=== PATIENT | female | born 1990 | race Caucasian/White ===

== ENCOUNTER 2021-05-19 23:06 | Inpatient (IN) ==
[2021-05-19] MEDS ORDERED: Haloperidol Lactate 5 MG/ML VIAL IM ONE (23:48)
[2021-05-20 01:41] LABS: Hematocrit 31.3 % (35.3-44.9); Hemoglobin 9.7 g/dL (11.5-15.4); Immature Granulocytes % 0.2 % (0-4); Lymphocytes # 1.6 K/mcL (0.6-4.6); Lymphocytes % 29.7 %; Mean Corpuscular Hemoglobin 23.4 pg (28.0-33.3); Mean Corpuscular Volume 75.4 fL (83.0-100.0); Mean Platelet Volume 9.4 fL (9.4-12.4); Monocytes # 0.5 K/mcL (0.0-1.3); Monocytes % 9.7 %; Neutrophils # 3.2 K/mcL (1.6-8.9); Platelet Count 226 K/mcL (140-400); Red Blood Count 4.15 M/mcL (3.82-4.97); Red Cell Distribution Width 17.4 % (11.5-14.5); Segmented Neutrophils % 60.4 %; White Blood Count 5.3 K/mcL (4.3-11.1)
[2021-05-20 02:06] LABS: Acetaminophen < 10 mcg/mL (10-20); Alanine Aminotransferase 11 Units/L (7-52); Albumin/Globulin Ratio 1.2 (1.1-2.2); Alkaline Phosphatase 80 Units/L (34-104); Aspartate Amino Transferase 23 Units/L (13-39); BUN/Creatinine Ratio 12 (6-26); Bilirubin,Indirect 0.4 mg/dL (0.0-1.0); Bilirubin,Total 0.4 mg/dL (0.3-1.0); Blood Urea Nitrogen 8 mg/dL (6-20); Calcium 9.1 mg/dL (8.6-10.3); Carbon Dioxide 25 mEq/L (23-29); Chloride 109 mEq/L (98-107); Ethanol < 10 mg/dL (Less than 10); Globulin 3.3 g/dL (2.4-3.5); Glucose 110 mg/dL (70-105); Osmolality,Calculated 289 (280-300); Potassium 3.1 mEq/L (3.5-5.1); Salicylate < 2.5 mg/dL (15.0-30.0); Sodium 140 mEq/L (136-145); Total Protein 7.3 g/dL (6.4-8.9); eGFR For African Americans > 60 (> 60); eGFR For Non-African Americans > 60 (> 60)
[2021-05-20 02:42] LABS: Adenovirus Not Detected (Not Detect); Bordetella Pertussis Not Detected (Not Detect); Chlamydophila pneumoniae Not Detected (Not Detect); Coronavirus 229E Not Detected (Not Detect); Coronavirus HKU1 Not Detected (Not Detect); Coronavirus NL63 Not Detected (Not Detect); Coronavirus OC43 Not Detected (Not Detect); Human Metapneumovirus Not Detected (Not Detect); Human Rhinovirus/Enterovirus Not Detected (Not Detect); Influenza A Subtype 2009 H1 Not Detected (Not Detect); Influenza B Not Detected (Not Detect); Mycoplasma pneumoniae Not Detected (Not Detect); Parainfluenza Virus 1 Not Detected (Not Detect); Parainfluenza Virus 2 Not Detected (Not Detect); Parainfluenza Virus 3 Not Detected (Not Detect); Parainfluenza Virus 4 Not Detected (Not Detect); Respiratory Syncytial Virus Not Detected (Not Detect); SARS-CoV-2 Not Detected (Not Detect)
[2021-05-20 03:24] LABS: Bilirubin,Urine Negative (Negative); Blood,Urine Negative (Negative); Clarity,Urine Turbid (Clear); Color,Urine Yellow (Yellow); Glucose,Urine (UA) Normal (Normal); Ketones,Urine Negative (Negative); Leukocyte Esterase,Urine Moderate (Negative); Mucus,Urine Many per lpf (None-Few); Nitrite,Urine Negative (Negative); Protein,Urine 50 mg/dL (Neg-Trace); Specific Gravity,Urine > 1.030 (1.010-1.025); Squamous Epithelial Cell,Urine Many per hpf (None-Few)
[2021-05-20 03:36] LABS: Amphetamine Screen,Urine Positive ng/mL (Cutoff=1000); Barbiturate Screen,Urine Negative ng/mL (Cutoff=200); Benzodiazepines Screen,Urine Negative ng/mL (Cutoff=200); Cannabinoid Screen,Urine Negative ng/mL (Cutoff = 50); Cocaine Screen,Urine Negative ng/mL (Cutoff= 300); Opiate Screen,Urine Negative ng/mL (Cutoff=300); Phencyclidine Screen,Urine Negative ng/mL (Cutoff=25)
[2021-05-20] MEDS ORDERED: Potassium Chloride Elixir 20 MEQ/15 ML UDC PO ONE (03:46)
[2021-05-20] MEDS ORDERED: cephALEXin 500 MG CAPSULE PO ONE (03:47)
[2021-05-20] MEDS ORDERED: Haloperidol Lactate 5 MG/ML VIAL IM PRN (04:56)
[2021-05-20] MEDS ORDERED: *HR* LORazepam 1 MG TABLET PO PRN (04:56)
[2021-05-20] MEDS ORDERED: haloperidoL 5 MG TABLET PO PRN (04:56)
[2021-05-20] MEDS ORDERED: *HR* LORazepam 2 MG/ML VIAL IM PRN (04:56)
[2021-05-20] MEDS ORDERED: hydrOXYzine pamoate 25 MG CAPSULE PO PRN (04:56)
[2021-05-20] MEDS ORDERED: QUEtiapine Fumarate 25 MG TABLET PO PRN (04:56)
[2021-05-20] MEDS: cephALEXin 500 MG CAPSULE PO SCH ×2 (09:51→20:36)
[2021-05-20] MEDS ORDERED: *HR* Buprenorphine HCl 8 MG TAB.SUBL SL SCH ×2 (11:00→17:00)
[2021-05-20] MEDS ORDERED: Ibuprofen 400 MG TABLET PO PRN (11:02)
[2021-05-20] MEDS ORDERED: Mag Hydrox/Al Hydrox/Simeth 30 ML UDC PO PRN (11:02)
[2021-05-20] MEDS ORDERED: MOM Conc 10 ML UD.LIQ PO PRN (11:02)
[2021-05-20] MEDS: Venlafaxine XR (24 HR) 75 MG CAP.ER.24H PO SCH (13:35)
[2021-05-20] MEDS: Gabapentin 400 MG CAPSULE PO SCH ×3 (13:35→20:36)
[2021-05-20] MEDS: Venlafaxine XR (24 HR) 150 MG CAP.ER.24H PO SCH (13:35)
[2021-05-20] MEDS: Nicotine 14 MG PATCH.TD24 TD SCH (13:38)
[2021-05-20] MEDS: NALOXONE HCL SL SCH (14:43)
[2021-05-20] MEDS: BUPRENORPHINE HCL SL SCH (14:43)
[2021-05-20] MEDS ORDERED: NON-FORMULARY MEDICATION 1 EACH EACH (Buprenorphine Hcl/Naloxone Hcl [Suboxone 8 Mg-2 Mg S SL SCH (21:00)
[2021-05-20] MEDS ORDERED: QUEtiapine Fumarate 100 MG TABLET PO SCH (21:00)
[2021-05-21 09:13] VITALS: BP 114/70; PULSE 97; TEMP 98; O2SAT 97
[2021-05-21] MEDS: Nicotine 14 MG PATCH.TD24 TD SCH (09:24)
[2021-05-21] MEDS: cephALEXin 500 MG CAPSULE PO SCH (09:26)
[2021-05-21] MEDS: Venlafaxine XR (24 HR) 150 MG CAP.ER.24H PO SCH (09:26)
[2021-05-21] MEDS: Gabapentin 400 MG CAPSULE PO SCH (09:26)
[2021-05-21] MEDS: Venlafaxine XR (24 HR) 75 MG CAP.ER.24H PO SCH (09:26)
[2021-05-21] MEDS ORDERED: *HR* Buprenorphine HCl 8 MG TAB.SUBL SL SCH (09:45)
[2021-05-21] MEDS: NALOXONE HCL SL SCH (09:58)
[2021-05-21] MEDS: BUPRENORPHINE HCL SL SCH (09:58)
== END 2021-05-21 13:25 | disposition home or self-care (01) | DRG 753 ==
LOC: EMEROOARM 23:06 → 1ANU 05-20 05:08
PROVIDERS: ADMIT Psychiatry & Neurology Psychiatry; ATTEND Psychiatry & Neurology Psychiatry

== ENCOUNTER 2021-06-05 15:33 | Observation (INO) ==
[2021-06-05] MEDS ORDERED: *HR* LORazepam 2 MG/ML VIAL IM ONE (16:16)
[2021-06-05] MEDS ORDERED: Haloperidol Lactate 5 MG/ML VIAL IM ONE (16:16)
[2021-06-05 17:18] LABS: Hematocrit 31.5 % (35.3-44.9); Hemoglobin 9.9 g/dL (11.5-15.4); Immature Granulocytes % 0.2 % (0-4); Lymphocytes % 21.2 %; Mean Corpuscular HGB Conc 31.4 g/dL (31.6-35.5); Mean Corpuscular Hemoglobin 23.5 pg (28.0-33.3); Mean Corpuscular Volume 74.6 fL (83.0-100.0); Mean Platelet Volume 9.6 fL (9.4-12.4); Monocytes # 0.3 K/mcL (0.0-1.3); Neutrophils # 3.3 K/mcL (1.6-8.9); Platelet Count 240 K/mcL (140-400); Red Blood Count 4.22 M/mcL (3.82-4.97); Red Cell Distribution Width 17.4 % (11.5-14.5); Segmented Neutrophils % 71.6 %; White Blood Count 4.6 K/mcL (4.3-11.1)
[2021-06-05 17:40] LABS: Bacteria,Urine Few per hpf (None-Few); Bilirubin,Urine Negative (Negative); Blood,Urine Large (Negative); Calcium Oxalate Crystals,Urine Present per hpf; Clarity,Urine Clear (Clear); Color,Urine Yellow (Yellow); Glucose,Urine (UA) Normal (Normal); Ketones,Urine Negative (Negative); Leukocyte Esterase,Urine Trace (Negative); Mucus,Urine Few per lpf (None-Few); Nitrite,Urine Negative (Negative); Protein,Urine 30 mg/dL (Neg-Trace); Specific Gravity,Urine 1.028 (1.010-1.025); Squamous Epithelial Cell,Urine Moderate per hpf (None-Few); Urobilinogen,Urine Normal (Normal)
[2021-06-05 17:42] LABS: Acetaminophen < 10 mcg/mL (10-20); BUN/Creatinine Ratio 6 (6-26); Blood Urea Nitrogen 4 mg/dL (6-20); Calcium 8.9 mg/dL (8.6-10.3); Carbon Dioxide 23 mEq/L (23-29); Chloride 108 mEq/L (98-107); Ethanol < 10 mg/dL (Less than 10); Glucose 107 mg/dL (70-105); Osmolality,Calculated 283 (280-300); Potassium 3.4 mEq/L (3.5-5.1); Salicylate 2.8 mg/dL (15.0-30.0); Sodium 138 mEq/L (136-145); eGFR For African Americans > 60 (> 60); eGFR For Non-African Americans > 60 (> 60)
[2021-06-05 17:46] LABS: Amphetamine Screen,Urine Positive ng/mL (Cutoff=1000); Barbiturate Screen,Urine Negative ng/mL (Cutoff=200); Benzodiazepines Screen,Urine Negative ng/mL (Cutoff=200); Cannabinoid Screen,Urine Negative ng/mL (Cutoff = 50); Cocaine Screen,Urine Negative ng/mL (Cutoff= 300); Opiate Screen,Urine Negative ng/mL (Cutoff=300); Phencyclidine Screen,Urine Negative ng/mL (Cutoff=25)
[2021-06-06 13:21] LABS: Influenza A PCR Negative (Negative); Influenza B PCR Negative (Negative); Resp. Syncytial Virus PCR Negative (Negative)
[2021-06-06 13:22] LABS: SARS-CoV-2 by PCR (In House) Negative (Negative)
[2021-06-06] MEDS ORDERED: haloperidoL 5 MG TABLET PO PRN (15:31)
[2021-06-06] MEDS ORDERED: *HR* LORazepam 1 MG TABLET PO PRN (15:31)
[2021-06-06] MEDS ORDERED: *HR* LORazepam 2 MG/ML VIAL IM PRN (15:31)
[2021-06-06] MEDS ORDERED: Haloperidol Lactate 5 MG/ML VIAL IM PRN (15:31)
[2021-06-06] MEDS ORDERED: QUEtiapine Fumarate 25 MG TABLET PO PRN (20:15)
[2021-06-06] MEDS ORDERED: Ibuprofen 400 MG TABLET PO PRN (20:15)
[2021-06-06] MEDS ORDERED: hydrOXYzine pamoate 25 MG CAPSULE PO PRN (20:15)
[2021-06-06 21:24] VITALS: TEMP 97.7; O2SAT 98
[2021-06-07 10:28] VITALS: BP 113/67; PULSE 60
== END 2021-06-07 12:05 | disposition home or self-care (01) ==
LOC: EMEROOARM 15:33 → 1ANU 06-06 15:04 → INTOOBSV 06-06 15:04 → 1ANU 06-06 15:34
PROVIDERS: ADMIT Psychiatry & Neurology Psychiatry; ATTEND Psychiatry & Neurology Psychiatry